=== PATIENT | female | born 2000 | race Caucasian/White ===

== ENCOUNTER 2021-06-13 19:59 | Emergency (ER) | payer OTHER ==
[~2021-06-13] VITALS: Ht 177.8 cm; Wt 117.6 kg
[2021-06-13] MEDS ORDERED: LEVOTHYROXINE100 MCG PO (20:19)
[2021-06-13] MEDS ORDERED: REGLAN10 MG PO (23:27)
== END 2021-06-13 23:40 | disposition home or self-care (01) ==
LOC: ED 19:59
DX: O98.511 Other viral diseases complicating pregnancy, first trimester (principal); U07.1 COVID-19; O99.351 Diseases of the nervous system complicating pregnancy, first trimester; G43.909 Migraine, unspecified, not intractable, without status migrainosus; Z3A.09 9 weeks gestation of pregnancy; Z88.8 Allergy status to other drugs, medicaments and biological substances; Z79.899 Other long term (current) drug therapy
CPT/HCPCS: 81001; 96374; 99284-25; C9803; J2765; J7030; U0003